=== PATIENT | male | born 1990 | race Caucasian/White ===

== ENCOUNTER → 2020-11-13 | Outpatient (CLI) | payer BC ==
--- NOTE | 2020-11-14 06:43 | CT ---
EXAMINATION TYPE: CT abdomen w con DATE OF EXAM: 11/13/2020 COMPARISON: None. HISTORY: Weight loss and Abdominal pain CT DLP: 865 mGycm, Automated Exposure Control for Dose Reduction was Utilized. CONTRAST: CT scan of the abdomen is performed with oral and with IV Contrast, patient injected with 100 mL of I sovue 300. FINDINGS: LUNG BASES: No significant abnormality is appreciated. LIVER/GB: No significant abnormality is appreciated. PANCREAS: No significant abnormality is seen. SPLEEN: No significant abnormality is seen. ADRENALS: No significant abnormality is seen. KIDNEYS: Symmetric cord measuring uptake and excretion without hydronephrosis seen bilaterally. Occas ional subcentimeter and borderline 1.0 cm thin-walled cysts scattered throughout both kidneys. Roughl y 3 to 7 lesions slightly more numerous in left kidney. BOWEL: Oral contrast does not reach distal ileal levels making evaluation of distal bowel slightly ortega boptimal. No suspicious small or large bowel dilatation is seen. Terminal ileum poorly distended and thus suboptimally evaluated. LYMPH NODES: No greater than 1cm abdominal lymph nodes are appreciated. OSSEOUS STRUCTURES: [id number] disc space narrowing lumbosacral junction. OTHER: No significant additional abnormality is seen. IMPRESSION: No suspicious mass or adenopathy. Probable simple renal cysts slightly more prominent in number than typical for patient of this age.
== END ==
LOC: RADCTMAIN 18:21
PROVIDERS: ATTEND Internal Medicine
DX: R10.9 Unspecified abdominal pain (principal); R63.4 Abnormal weight loss
CPT/HCPCS: 74160; Q9967